=== PATIENT | female | born 1965 | race Caucasian/White ===

== ENCOUNTER → 2017-09-17 | Outpatient (CLI) | payer OTHER ==
[~2017-09-17] VITALS: Ht 152.4 cm; Wt 122.5 kg
[~2017-09-17] MED LIST: BENTYL 10 MG CA10 MG PO; CARAFATE 1 GM TA1 GM PO; CLONAZEPAM 1 MG1 M1 PO; EFFEXOR XR150 MG PO; ESTRADIOL 1 MG T1 M1 PO; ESTROGEN-METHY1 EAC3 PO; EXCEDRIN MIGRA1 EAC1 PO; FLEXERIL PO; LOPERAMIDE 2 MG2 M1 PO; MUCINEX D TABL1 EACH PO; PEPCID40 MG PO; PHENERGAN 25 MG25 M1 PO; PRILOSEC 20 MG20 MG PO; SINGULAIR 10 MG10 M1 PO; SOMA250 MG PO
--- NOTE | ~2017-09-17 | P ---
[facility] [place] [address] PROCEDURE REPORT Name: RASHMI ACEVEDO Room #: REG FROYMick Logan#: [id number] Admission: 09/17/17 Attend Phys: Arnaldo Banuelos Discharge: Date of : 65 Report #: [id number] THIS REPORT FOR: //name// CC: Marcellus Roberts DATE OF SERVICE: 09/17/2017 PROCEDURE PERFORMED: Upper endoscopy with esophageal dilation. HISTORY OF PRESENT ILLNESS: The patient is a 52-year-old female with a history of gastroesophageal reflux disease with intermittent chest pain, which she describes as esophageal spasm. Cardiac workup has been negative. She has had an upper endoscopy by myself with dilation for dysphagia 8 years ago. She does report intermittent dysphagia to certain foods and regurgitation at times. These chest pains can last, when an episode occurs, up to 3-5 days. She is already taking PPI therapy on a daily basis, later added Pepcid and then Carafate without any improvement. Plan is for upper endoscopy. DESCRIPTION OF PROCEDURE: The risks and benefits of the procedure were explained to the patient, those risks including but not limited to bleeding, perforation, the risk of sedation. She understood these risks and gave informed consent. Sedation was given using ketamine and propofol per Anesthesia. Next, using a standard [employer] upper endoscope, the scope was placed in the patient's mouth and advanced under direct vision through the esophagus, stomach and into the second portion of the duodenum. The esophagus was normal throughout. The GE junction was normal. No evidence of esophagitis or stricture. Upon entering the stomach, a small hiatal hernia was noted. Overall, the gastric mucosa was normal. The pylorus was normal and patent. The duodenal bulb, first and second portion were all normal. The scope was then brought back up into the patient's stomach and a Savary guidewire was inserted through the scope, leaving the guidewire in place as the scope was then withdrawn. Next, a 48-Yi Savary dilation of the esophagus was then performed without difficulty. The wire and dilator removed. The scope was reintroduced into the patient's stomach. There was no evidence of mucosal tear after dilation. The scope was then withdrawn and the procedure terminated. The patient tolerated the procedure well. IMPRESSION: 1. Small hiatal hernia. 2. Otherwise, normal upper endoscopy. RECOMMENDATIONS: 1. Continue PPI therapy. We will discontinue Pepcid and Carafate as this has not been helpful recently. 2. Advised the patient to use Levsin on a p.r.n. basis for likely esophageal [address] [address] PROCEDURE REPORT Name: KRISTINARASHMI L Room #: [facility] JOSIAS Logan#: [id number] Admission: 09/17/17 Attend Phys: Arnaldo Banuelos Discharge: Date of : 65 Report #: [id number] [id number]. Thank you for allowing me to participate in her care. By: [id number] Arnaldo Roberts MD /ava
--- NOTE | ~2017-09-17 | P ---
[facility] [place] [address] PROCEDURE REPORT Name: RASHMI ACEVEDO Room #: REG JOSIAS Logan#: [id number] Admission: 09/17/17 Attend Phys: Arnaldo Banuelos Discharge: Date of : 65 Report #: [id number] THIS REPORT FOR: //name// CC: Marcellus Roberts DATE OF SERVICE: 09/17/2017 PROCEDURE PERFORMED: Colonoscopy. HISTORY OF PRESENT ILLNESS: The patient is a 52-year-old female who presents today for a screening colonoscopy. No previous history of colonoscopy. No family history of colon cancer. PROCEDURE: The risks and benefits of the procedure were explained to the patient, those risks including, but not limited to bleeding, perforation, and the risk of sedation. She understood these risks and gave informed consent. Sedation was given using propofol and ketamine per anesthesia. Next, a digital rectal exam was initially performed, which was normal. Next, using a standard Fujinon colonoscope, the scope was placed in the patient's anus and advanced under direct vision to the cecum. The overall prep was excellent. The cecum and ileocecal valve were normal in appearance. Ascending, transverse, and descending colon were normal. A few small diverticula were noted in the sigmoid colon, otherwise normal. The rectal mucosa was normal. On retroflexion, no abnormalities were noted. Scope was then withdrawn and the procedure terminated. The patient tolerated the procedure well. IMPRESSION: 1. Mild sigmoid diverticulosis. 2. Otherwise, normal colonoscopy. RECOMMENDATIONS: Repeat colonoscopy in 10 years. Thank you for allowing me to participate in her care. By: [id number] Arnaldo Roberts MD /nt
== END | disposition home or self-care (01) ==
LOC: GI 07:22
DX: Z12.11 Encounter for screening for malignant neoplasm of colon (principal); K57.30 Diverticulosis of large intestine without perforation or abscess without bleeding; R07.89 Other chest pain; K44.9 Diaphragmatic hernia without obstruction or gangrene; F41.9 Anxiety disorder, unspecified; M79.7 Fibromyalgia; G43.909 Migraine, unspecified, not intractable, without status migrainosus; Z90.710 Acquired absence of both cervix and uterus; Z98.890 Other specified postprocedural states; Z88.6 Allergy status to analgesic agent; Z88.8 Allergy status to other drugs, medicaments and biological substances; Z79.899 Other long term (current) drug therapy
CPT/HCPCS: 62110; 62900